=== PATIENT | female | born 1955 | race Caucasian/White ===

== ENCOUNTER → 2016-08-27 | Outpatient (REF) | payer BC ==
[~2016-08-27] MED LIST: ATOR1TAB21 PO; CALCIUM/VITAMIN D; CEPA0.05 MT; COUM2.5T11 PO; IRON CR; LIPI10TA; PERC10TA17 PO; SIMV40TA2 PO; SYNT75TA PO; THERGRAN; TYLE167L PO; VIAC8.5C PO
[2016-08-27 12:32] LABS: ALBUMIN 3.9 GM/DL (3.2-5.2); ALBUMIN/GLOBULIN RATIO 1.05 (1.00-1.93); ALKALINE PHOSPHATASE 92 U/L (45-117); ALT/SGPT 33 U/L (12-78); ANION GAP 7 MEQ/L (8-16); AST/SGOT 38 U/L (15-37); BILIRUBIN,TOTAL 0.9 MG/DL (0.2-1.0); BLOOD UREA NITROGEN 20 MG/DL (7-18); CARBON DIOXIDE LEVEL 29 MEQ/L (21-32); CHLORIDE LEVEL 107 MEQ/L (98-107); CHOLESTEROL LEVEL 205 MG/DL (<200); CREATININE FOR GFR 0.81 MG/DL (0.55-1.02); GLOMERULAR FILTRATION RATE > 60.0 (>51); GLUCOSE, FASTING 91 MG/DL (70-105); POTASSIUM SERUM 4.1 MEQ/L (3.5-5.1); SODIUM LEVEL 143 MEQ/L (136-145); TOTAL PROTEIN 7.6 GM/DL (6.4-8.2); TRIGLYCERIDES LEVEL 68 MG/DL (<150)
== END ==
LOC: M LABDRAW1 11:25
PROVIDERS: ATTEND Family Medicine
DX: E78.00 Pure hypercholesterolemia, unspecified (principal); E03.9 Hypothyroidism, unspecified; D64.9 Anemia, unspecified

== ENCOUNTER → 2016-09-13 | Outpatient (REF) | payer BC ==
[2016-09-13 10:24] LABS: FREE T4 0.82 NG/DL (0.76-1.46)
== END ==
LOC: M LABDRAW1 09:26
PROVIDERS: ATTEND Family Medicine
DX: Z00.00 Encounter for general adult medical examination without abnormal findings (principal); E03.9 Hypothyroidism, unspecified

== ENCOUNTER → 2017-01-28 | Outpatient (CLI) | payer BC ==
--- NOTE | 2017-01-28 10:09 | REPMRS ---
Patient History The patient states she had a clinical breast exam in 01/29 Family history of breast cancer in mother at age 50 or over. Digital Woman Screen Mammo: January 28, 2017 - Exam #: [id number] Bilateral CC and MLO view(s) were taken. Technologist: Carmen Bradford, Technologist Prior study comparison: December 25, 2015, digital woman screen mammo performed at [facility]. September 20, 2014, digital woman screen mammo performed at [facility]. FINDINGS: There are scattered fibroglandular densities. There has been no change in the appearance of the mammogram from the prior studies. There is a mild amount of residual fibroglandular tissue which is fairly symmetric. There is no interval development of dominant mass, architectural distortion, or clustered microcalcification suggestive of malignancy. ASSESSMENT: BI-RADS/ACR category 1 mammogram. Negative. Recommendation Routine screening mammogram in 1 year (for women over age 40). This mammogram was interpreted with the aid of an FDA-approved computer-aided dectection system. Electronically Signed By: Nilo Britton MD 01/28/17 [id number]
== END ==
LOC: M WHC 08:19
PROVIDERS: ATTEND Nurse Practitioner Family
DX: Z12.31 Encounter for screening mammogram for malignant neoplasm of breast (principal); Z80.3 Family history of malignant neoplasm of breast

== ENCOUNTER → 2017-01-28 | Outpatient (REF) | payer BC | LOC: M SFHCWAGY 08:27 | PROVIDERS: ATTEND Nurse Practitioner Family | DX: Z12.4 Encounter for screening for malignant neoplasm of cervix (principal) ==

== ENCOUNTER → 2017-02-17 | Outpatient (REF) | payer BC ==
[~2017-02-17] MED LIST changes: -COUM2.5T11 PO; +COUM2.5T17 PO; -PERC10TA17 PO; +PERC10TA26 PO
[2017-02-17 12:16] LABS: ALBUMIN 3.8 GM/DL (3.2-5.2); ALKALINE PHOSPHATASE 97 U/L (45-117); ALT/SGPT 26 U/L (12-78); ANION GAP 7 MEQ/L (8-16); AST/SGOT 27 U/L (15-37); BLOOD UREA NITROGEN 19 MG/DL (7-18); CALCIUM LEVEL 9.2 MG/DL (8.5-10.1); CARBON DIOXIDE LEVEL 31 MEQ/L (21-32); CHLORIDE LEVEL 103 MEQ/L (98-107); CHOLESTEROL LEVEL 235 MG/DL (<200); CREATININE FOR GFR 0.81 MG/DL (0.55-1.02); GLOMERULAR FILTRATION RATE > 60.0 (>51); GLUCOSE, FASTING 82 MG/DL (70-105); POTASSIUM SERUM 4.3 MEQ/L (3.5-5.1); SODIUM LEVEL 141 MEQ/L (136-145); TRIGLYCERIDES LEVEL 121 MG/DL (<150)
== END ==
LOC: M LABDRAW1 08:29
PROVIDERS: ATTEND Family Medicine
DX: D64.9 Anemia, unspecified (principal); E03.9 Hypothyroidism, unspecified

== ENCOUNTER → 2017-08-31 | Outpatient (REF) | payer BC ==
[2017-08-31 12:04] LABS: ALBUMIN 3.7 GM/DL (3.2-5.2); ALBUMIN/GLOBULIN RATIO 0.97 (1.00-1.93); ALKALINE PHOSPHATASE 105 U/L (45-117); ALT/SGPT 24 U/L (12-78); ANION GAP 8 MEQ/L (8-16); AST/SGOT 24 U/L (7-37); BILIRUBIN,TOTAL 0.4 MG/DL (0.2-1.0); BLOOD UREA NITROGEN 16 MG/DL (7-18); CALCIUM LEVEL 8.8 MG/DL (8.8-10.2); CARBON DIOXIDE LEVEL 29 MEQ/L (21-32); CHLORIDE LEVEL 104 MEQ/L (98-107); CHOLESTEROL LEVEL 214 MG/DL (<200); CHOLESTEROL RISK RATIO 3.147 (<5); CREATININE FOR GFR 0.74 MG/DL (0.55-1.02); GLOMERULAR FILTRATION RATE > 60.0 (>45); GLUCOSE, FASTING 105 MG/DL (80-110); HDL CHOLESTEROL 68 MG/DL (>40); LDL CHOLESTEROL 130.4 MG/DL (<100); NON-HDL-C 146 MG/DL; SODIUM LEVEL 141 MEQ/L (136-145); TOTAL PROTEIN 7.5 GM/DL (6.4-8.2); TRIGLYCERIDES LEVEL 78 MG/DL (<150)
== END ==
LOC: M LABDRAW1 10:56
DX: Z00.00 Encounter for general adult medical examination without abnormal findings (principal); E78.00 Pure hypercholesterolemia, unspecified; E03.9 Hypothyroidism, unspecified
CPT/HCPCS: 84443

== ENCOUNTER → 2017-10-19 | Outpatient (REF) | payer BC ==
[2017-10-19 14:34] LABS: FREE T4 1.06 NG/DL (0.76-1.46)
[2017-10-19 14:34] LABS: THYROID STIMULATING HORMONE 0.128 uIU/ML (0.358-3.740)
== END ==
LOC: M LABDRAW1 12:04
DX: E03.9 Hypothyroidism, unspecified (principal)
CPT/HCPCS: 84443

== ENCOUNTER → 2017-11-03 | Outpatient (REF) | payer BC ==
[2017-11-03 15:31] LABS: BASO % 0.4 % (0.0-1.0); EOS # 0.2 10^3/uL (0.0-0.50); EOS % 3.9 % (0.0-3.0); HEMATOCRIT 38.5 % (36.0-47.0); HEMOGLOBIN 12.7 g/dl (12.0-16.0); IMMATURE GRANULOCYTE % 0.4 % (0-3.0); LYMPH # 1.8 10^3/uL (1.5-4.5); LYMPH % 37.7 % (24.0-44.0); MEAN CORPUSCULAR HEMOGLOBIN 29.6 pg (27.0-33.0); MEAN CORPUSCULAR VOLUME 89.7 fl (80.0-96.0); MONO # 0.4 10^3/uL (0.0-0.8); MONO % 8.6 % (0.0-5.0); NEUTROPHILS # 2.4 10^3/uL (1.8-7.7); PLATELET COUNT, AUTOMATED 195 10^3/uL (150-450); RED BLOOD COUNT 4.29 10^6/uL (4.00-5.40); RED CELL DISTRIBUTION WIDTH 12.5 % (11.5-14.5); WHITE BLOOD COUNT 4.9 10^3/uL (4.0-10.0)
[2017-11-03 15:49] LABS: C REACTIVE PROTEIN QUANTITATIV < 0.30 MG/DL (0.00-0.30)
[2017-11-03 15:58] LABS: ERYTHROCYTE SEDIMENTATION RATE 8 mm/hr (0-30)
== END ==
LOC: M LABDRAW1 13:49
DX: M25.561 Pain in right knee (principal)

== ENCOUNTER → 2017-11-04 | Outpatient (CLI) | payer BC | LOC: M RAD 08:31 | DX: M25.561 Pain in right knee (principal) ==

== ENCOUNTER → 2018-02-28 | Outpatient (REF) | payer BC ==
[2018-02-28 13:07] LABS: ALBUMIN 3.7 GM/DL (3.2-5.2); ALBUMIN/GLOBULIN RATIO 0.97 (1.00-1.93); ALKALINE PHOSPHATASE 86 U/L (45-117); ALT/SGPT 28 U/L (12-78); ANION GAP 7 MEQ/L (8-16); AST/SGOT 24 U/L (7-37); BILIRUBIN,TOTAL 0.6 MG/DL (0.2-1.0); BLOOD UREA NITROGEN 20 MG/DL (7-18); CARBON DIOXIDE LEVEL 30 MEQ/L (21-32); CHLORIDE LEVEL 106 MEQ/L (98-107); CHOLESTEROL LEVEL 224 MG/DL (<200); CHOLESTEROL RISK RATIO 3.796 (<5); CREATININE FOR GFR 0.82 MG/DL (0.55-1.30); FREE T4 0.79 NG/DL (0.76-1.46); GLOMERULAR FILTRATION RATE > 60.0 (>45); GLUCOSE, FASTING 102 MG/DL (70-100); HDL CHOLESTEROL 59 MG/DL (>40); LDL CHOLESTEROL 139.2 MG/DL (<100); NON-HDL-C 165 MG/DL; POTASSIUM SERUM 4.3 MEQ/L (3.5-5.1); SODIUM LEVEL 143 MEQ/L (136-145); THYROID STIMULATING HORMONE 0.326 uIU/ML (0.358-3.740); TOTAL PROTEIN 7.5 GM/DL (6.4-8.2); TRIGLYCERIDES LEVEL 129 MG/DL (<150)
== END ==
LOC: M LABDRAW1 12:00
DX: Z00.00 Encounter for general adult medical examination without abnormal findings (principal); E78.00 Pure hypercholesterolemia, unspecified; E03.9 Hypothyroidism, unspecified
CPT/HCPCS: 84443

== ENCOUNTER → 2018-06-14 | Outpatient (REF) | payer BC ==
[2018-06-16 14:27] LABS: HPV HYBRID CAPTURE II Negative (Negative)
== END ==
LOC: M SFHCWAGY 10:27
DX: Z12.4 Encounter for screening for malignant neoplasm of cervix (principal)
CPT/HCPCS: G0123

== ENCOUNTER → 2018-06-14 | Outpatient (CLI) | payer BC | LOC: M WHC 10:02 | DX: Z12.31 Encounter for screening mammogram for malignant neoplasm of breast (principal) | CPT/HCPCS: 77067 ==

== ENCOUNTER → 2018-10-04 | Outpatient (REF) | payer BC ==
[2018-10-04 16:42] LABS: ALT/SGPT 27 U/L (12-78); BILIRUBIN,TOTAL 1.2 MG/DL (0.2-1.0); BLOOD UREA NITROGEN 16 MG/DL (7-18); CALCIUM LEVEL 9.3 MG/DL (8.8-10.2); CARBON DIOXIDE LEVEL 30 MEQ/L (21-32); CHLORIDE LEVEL 105 MEQ/L (98-107); CHOLESTEROL LEVEL 231 MG/DL (<200); CHOLESTEROL RISK RATIO 3.666 (<5); FREE T4 0.88 NG/DL (0.76-1.46); GLOMERULAR FILTRATION RATE > 60.0 (>45); GLUCOSE, FASTING 99 MG/DL (70-100); HDL CHOLESTEROL 63 MG/DL (>40); LDL CHOLESTEROL 145 MG/DL (<100); NON-HDL-C 168 MG/DL; SODIUM LEVEL 140 MEQ/L (136-145); THYROID STIMULATING HORMONE 0.285 uIU/ML (0.358-3.740); TOTAL PROTEIN 7.8 GM/DL (6.4-8.2); TRIGLYCERIDES LEVEL 116 MG/DL (<150)
== END ==
LOC: M LABDRAW1 11:41
PROVIDERS: ATTEND Family Medicine
DX: E03.9 Hypothyroidism, unspecified (principal); E78.00 Pure hypercholesterolemia, unspecified; Z79.01 Long term (current) use of anticoagulants

== ENCOUNTER → 2019-05-07 | Outpatient (CLI) | payer BC ==
[~2019-05-07] MED LIST changes: -VIAC8.5C PO; +VIACTIV 500-5001 CHW PO
[2019-05-07 13:51] LABS: FREE T4 0.83 NG/DL (0.76-1.46); THYROID STIMULATING HORMONE 0.455 uIU/ML (0.358-3.740)
[2019-05-08 14:21] LABS: ALBUMIN 3.9 GM/DL (3.2-5.2); ALT/SGPT 24 U/L (12-78); BILIRUBIN,TOTAL 0.7 MG/DL (0.2-1.0); BLOOD UREA NITROGEN 19 MG/DL (7-18); CALCIUM LEVEL 9.2 MG/DL (8.8-10.2); CARBON DIOXIDE LEVEL 27 MEQ/L (21-32); CHLORIDE LEVEL 108 MEQ/L (98-107); CHOLESTEROL LEVEL 220 MG/DL (<200); CHOLESTEROL RISK RATIO 3.793 (<5); CREATININE FOR GFR 0.83 MG/DL (0.55-1.30); GLOMERULAR FILTRATION RATE > 60.0 (>45); GLUCOSE, FASTING 94 MG/DL (70-100); HDL CHOLESTEROL 58 MG/DL (>40); LDL CHOLESTEROL 141 MG/DL (<100); NON-HDL-C 162 MG/DL; POTASSIUM SERUM 4.5 MEQ/L (3.5-5.1); SODIUM LEVEL 143 MEQ/L (136-145); TOTAL PROTEIN 7.5 GM/DL (6.4-8.2); TRIGLYCERIDES LEVEL 105 MG/DL (<150)
== END ==
LOC: M SMT 09:15
PROVIDERS: ATTEND Family Medicine
DX: E03.9 Hypothyroidism, unspecified (principal)

== ENCOUNTER → 2019-06-15 | Outpatient (CLI) | payer BC ==
--- NOTE | 2019-06-15 10:56 | REPMRS ---
Patient History The patient states she had a clinical breast exam in 06/2019. Family history of breast cancer at age 70 in mother. No Hormone Replacement Therapy 3D TOMOSYNTHESIS WAS PERFORMED. [facility] lifetime [facility] for [facility] cancer is 14.3%. Digital Woman Screen Mammo: June 15, 2019 - Exam #: [id number] Bilateral CC and MLO view(s) were taken. Technologist: Radha Esposito, Technologist Prior study comparison: June 14, 2018, bilateral digital woman screen mammo performed at [facility]. January 28, 2017, digital woman screen mammo performed at [facility]. FINDINGS: The breast tissue is heterogeneously dense. This may lower the sensitivity of mammography. There has been no change in the appearance of the mammogram from the prior studies. There is a moderate amount of residual fibroglandular tissue which is fairly symmetric. There is no interval development of dominant mass, areas of architectural distortion, or clustered microcalcification typical of malignancy. Assessment: BI-RADS/ACR category 1 mammogram. Negative Mammogram. Recommendation Routine screening mammogram in 1 year (for women over age 40). This mammogram was interpreted with the aid of an FDA-approved computer-aided dectection system. Electronically Signed By: Nilo Britton MD 06/15/19 1080
== END ==
LOC: M WHC 09:41
PROVIDERS: ATTEND Nurse Practitioner Family
DX: Z12.31 Encounter for screening mammogram for malignant neoplasm of breast (principal)

== ENCOUNTER → 2019-08-16 | Outpatient (CLI) | payer BC ==
[~2019-08-16] MED LIST changes: -SIMV40TA2 PO; +SIMV40TA20 PO
--- NOTE | 2019-08-16 16:55 | REP ---
Clinical: swelling Technique: AP, lateral, bilateral oblique views right first digit. Findings: Swelling noted. The osseous structures and joint spaces are intact and normal. There is no evidence for acute fracture or dislocation. Surrounding soft tissues are unremarkable. No subcutaneous emphysema or radiodense foreign body. Impression: Swelling. No acute fracture or dislocation. Electronically Signed by Fili Holland MD 08/16/2019 02:31 P
== END ==
LOC: M WUC 14:10
PROVIDERS: ATTEND Registered Nurse
DX: M25.541 Pain in joints of right hand (principal)

== ENCOUNTER → 2019-10-16 | Outpatient (POV) | payer BC ==
[~2019-10-16] VITALS: Ht 160 cm; Wt 65.0 kg
[2019-10-16 13:20] VITALS: BP 168/95
--- NOTE | 2019-10-19 09:10 | IRCOV ---
[facility] IR Consult Office Visit IR Consult Office Visit DATE: Oct 16, 2019 REASON FOR CONSULTATION/CHIEF COMPLAINT: Right leg pain. Varicose veins. HISTORY OF PRESENT ILLNESS: 64-year-old female with several months of right lower extremity pain and aching associated with pressure behind the knee. Patient is on her feet all day. She stopped running due to the pain. She is status post right knee replacement 4 years ago. No infections. No revision surgeries. No knee swelling. No locking or clicking in the knee. No prior deep vein thrombosis. No intermittent claudication, rest pain or prior cold leg. ALLERGIES: Please see below. HOME MEDICATIONS: Please see below. PAST MEDICAL HISTORY: Hypothyroidism Hyperlipidemia Diverticulitis Knee arthritis PAST SURGICAL HISTORY: Right knee surgery Carpal tunnel release FAMILY HISTORY: Noncontributory SOCIAL HISTORY: Nonsmoker, occasional alcohol no drugs REVIEW OF SYSTEMS: Otherwise negative. PHYSICAL EXAMINATION: VITAL SIGNS: Please see below. GENERAL APPEARANCE: Appears well. Comfortable at rest. HEENT: No scleral icterus. RESPIRATORY: Normal breathing at rest. CARDIOVASCULAR: Normal rate. ABDOMEN: Soft nontender. EXTREMITIES: Right lower extremity: Color normal, warm to touch, no edema, no bulging varicosities, no knee effusion, no pinpoint tenderness over the anterior or posterior knee. No mass palpable in the right popliteal fossa. DP/PT + popliteal 2+ motor 5 out of 5. Left lower extremity: Color normal, warm to touch, no edema, no visible varicosities. DP/PT + popliteal 2+ motor 5 out of 5. NEUROLOGICAL: Alert and oriented. PSYCHIATRIC: Appropriate to circumstance. LABORATORY DATA: None. Imaging: No venous reflux studies. ASSESSMENT/PLAN: 64-year-old female with right leg aching associated with prolonged standing. Will obtain a right lower extremity venous reflux study to rc chavira for superficial venous insufficiency. We'll reach out to the patient once the study is done. I spent 30 minutes in consultation with the patient. Thank you for this referral. Cc PCP Allergies Coded Allergies: No Known Allergies (Verified , 06/21/05) Home Medications Scheduled Atorvastatin Calcium (Atorvastatin Calcium), 20 MG PO QHS, (Reported) Calcium Carb/Vitamin D3/Vit K1 (Viactiv Soft Chew), 1 CHW PO DAILY, (Reported) Levothyroxine Sodium (Synthroid), 75 MCG PO DAILY, (Reported) Simvastatin (Simvastatin), 20 MG PO QHS, (Reported) Warfarin Sodium (Coumadin), 2.5 MG PO DAILY, (Reported) Scheduled PRN (Cepacol), 1 WILLIE MT Q2HP PRN for SORE THROAT, (Reported) Acetaminophen (Tylenol), 650 MG PO Q4HP PRN for TEMP, (Reported) Oxycodone HCl/Acetaminophen (Percocet 10-325 mg Tablet), 1 TAB PO Q4HP PRN for PAIN, (Reported) VS, I&O, 24H, Fishbone Vital Signs/I&O Vital Signs Date Time Temp Pulse Resp B/P (MAP) Pulse Ox O2 Delivery O2 Flow Rate FiO2 10/16/19 13:20 97.9 88 18 168/95 (119) 95 Room Air ARIANNA PULIDO MD Oct 19, 2019 09:11
== END ==
LOC: M IRPOV 13:12
PROVIDERS: ATTEND Radiology Diagnostic Radiology
DX: M79.604 Pain in right leg (principal); E03.9 Hypothyroidism, unspecified; E78.5 Hyperlipidemia, unspecified; Z79.01 Long term (current) use of anticoagulants; Z79.899 Other long term (current) drug therapy; Z96.651 Presence of right artificial knee joint

== ENCOUNTER → 2019-10-23 | Outpatient (CLI) | payer BC ==
--- NOTE | 2019-10-24 08:44 | REP ---
Clinical: History of varicose veins. Technique: Real time dietz scale and color Doppler evaluation of the right lower extremity including reflux evaluation. Findings: Ultrasound examination of the right lower extremity deep venous structures including common femoral vein, superficial femoral vein, and popliteal vein demonstrates normal flow characteristics without deep venous thrombosis or reflux. Reflux evaluation of the right lower extremity demonstrates no reflux through the deep or superficial venous systems. Greater saphenous vein measures 6.0 mm diameter proximally and tapers to 2.6 mm diameter at the level of the knee. Impression: 1. Normal right lower extremity venous structures without evidence for deep venous thrombosis or reflux disease. Electronically Signed by Fili Holland MD 10/24/2019 08:36 A
== END ==
LOC: M RAD 09:27
PROVIDERS: ATTEND Radiology Diagnostic Radiology
DX: I83.90 Asymptomatic varicose veins of unspecified lower extremity (principal)

== ENCOUNTER → 2019-12-28 | Outpatient (CLI) | payer BC ==
--- NOTE | 2019-12-28 11:38 | REP ---
MRI LUMBAR SPINE WITHOUT CONTRAST: HISTORY: Lumbar disc degeneration. Back pain. Rule out spondylolisthesis. Comparison is made with images taken as part of a CAT scan of the abdomen from September 22, 2012. TECHNIQUE: Sagittal and axial T1- and T2-weighted scans are acquired in the usual fashion with and without fat saturation. Sequences include spin echo, turbo spin-echo, and STIR imaging sequences. MRI FINDINGS: Lumbar vertebral body heights are preserved. The tip of the conus medullaris is normal in position and appearance at L1. There are small cysts in the left kidney, the largest of which measures 1.1 cm, although it is incompletely seen. No other extra-vertebral abnormality is observed. Axial and sagittal images taken at L5-S1 demonstrate that there is bilateral L5 spondylolysis and a 7.6 mm grade 1 L5-S1 spondylolisthesis is present. There is advanced degenerative disc disease at L5-S1 with disc space narrowing. There are some reactive marrow changes on either side of the L5-S1 disc implying sclerosis. The spondylolisthesis measured 5 mm on the 2012 sagittal reformatted images from the CT study of the abdomen. There is bilateral neural foraminal narrowing, left greater than right due to the spondylolisthesis and disc bulging. No central canal stenosis is seen. There is osteoarthritic facet hypertrophy at L5-S1 and L4-5 associated with this. Axial and sagittal images at L4-5 demonstrate mild to moderate central canal stenosis due to diffuse disc bulging, bilateral ligamentum flavum and bilateral facet hypertrophy. The ligamentum flavum hypertrophy is more prominent on the left. No foraminal narrowing is seen. The midline AP dimension of the thecal sac at L4-5 is 9.7 mm. Thecal sac compression is more prominent from the dorsolateral aspects due to the facet and ligamentum flavum hypertrophy. At L3-4, there is degenerative narrowing and diffuse disc bulging and posterior osteophytic ridging. Canal size is borderline. Minimal facet and ligamentum flavum hypertrophy is present. At the L2-3 and L1-2, there is no significant finding. IMPRESSION: 7 mm grade 1 L5 S1 spondylolisthesis with bilateral L5 spondylolysis and associated degenerative changes. There is significant bilateral neural foraminal narrowing. The spondylolisthesis measured 5 mm in 2013. There is degenerative central canal stenosis at L4-5. Degenerative disc changes are seen at L3-4. Electronically Signed by Valentín Sandoval MD 12/28/2019 01:07 P
== END ==
LOC: M RAD 07:56
PROVIDERS: ATTEND Orthopaedic Surgery
DX: M51.36 Other intervertebral disc degeneration, lumbar region (principal)

== ENCOUNTER 2020-01-10 09:14 | Outpatient (RCR) | payer BC | END 2020-01-13 | LOC: M PT 09:14 | PROVIDERS: ATTEND Orthopaedic Surgery | DX: Z47.89 Encounter for other orthopedic aftercare (principal); M43.16 Spondylolisthesis, lumbar region; M54.16 Radiculopathy, lumbar region ==

== ENCOUNTER → 2020-05-20 | Outpatient (CLI) | payer BC ==
[2020-05-20 13:15] LABS: ALBUMIN 4.1 GM/DL (3.2-5.2); ALT/SGPT 36 U/L (12-78); BILIRUBIN,TOTAL 1.4 MG/DL (0.2-1.0); BLOOD UREA NITROGEN 16 MG/DL (7-18); CALCIUM LEVEL 9.7 MG/DL (8.8-10.2); CARBON DIOXIDE LEVEL 31 MEQ/L (21-32); CHLORIDE LEVEL 105 MEQ/L (98-107); CHOLESTEROL LEVEL 270 MG/DL (<200); CHOLESTEROL RISK RATIO 4.218 (<5); FREE THYROXINE INDEX 2.7 % (1.3-4.8); GLOMERULAR FILTRATION RATE > 60.0 (>45); GLUCOSE, FASTING 97 MG/DL (70-100); HDL CHOLESTEROL 64 MG/DL (>40); LDL CHOLESTEROL 175 MG/DL (<100); NON-HDL-C 206 MG/DL; POTASSIUM SERUM 4.6 MEQ/L (3.5-5.1); SODIUM LEVEL 140 MEQ/L (136-145); T UPTAKE 31 % (30-39); THYROID STIMULATING HORMONE 0.244 uIU/ML (0.358-3.740); THYROXINE (T4) 8.6 UG/DL (4.5-12.0); TRIGLYCERIDES LEVEL 155 MG/DL (<150)
== END ==
LOC: M WUC 08:56
PROVIDERS: ATTEND Family Medicine
DX: Z00.00 Encounter for general adult medical examination without abnormal findings (principal); E78.00 Pure hypercholesterolemia, unspecified; E03.9 Hypothyroidism, unspecified

== ENCOUNTER → 2020-06-13 | Outpatient (CLI) | payer BC ==
--- NOTE | 2020-06-13 13:00 | REPMRS ---
Patient History The patient states she had a clinical breast exam in May 2020.Family history of breast cancer at age 70 in mother. No Hormone Replacement Therapy 3D TOMOSYNTHESIS WAS PERFORMED. The [facility] lifetime risk for breast cancer is 13.8%. Volpara breast density b. Digital Woman Screen Mammo: June 13, 2020 - Exam #: [id number] Bilateral CC and MLO view(s) were taken. Technologist: Rhonda Ravi, Technologist Prior study comparison: June 15, 2019, bilateral digital woman screen mammo performed at [facility]. June 14, 2018, bilateral digital woman screen mammo performed at [facility]. FINDINGS: There are scattered fibroglandular densities. There has been no change in the appearance of the mammogram from the prior studies. There is a mild amount of residual fibroglandular tissue which is fairly symmetric. There is no interval development of dominant mass, architectural distortion, or clustered microcalcification suggestive of malignancy. Assessment: BI-RADS/ACR category 1 mammogram. Negative Mammogram. Recommendation Routine screening mammogram in 1 year (for women over age 40). This mammogram was interpreted with the aid of an FDA-approved computer-aided dectection system. Electronically Signed By: Nilo Britton MD 06/13/20 1300
== END ==
LOC: M WHC 09:40
PROVIDERS: ATTEND Nurse Practitioner Family
DX: Z12.31 Encounter for screening mammogram for malignant neoplasm of breast (principal)

== ENCOUNTER → 2020-07-07 | Outpatient (CLI) | payer BC ==
[2020-07-07 15:52] LABS: ALBUMIN 4.1 GM/DL (3.2-5.2); ALT/SGPT 31 U/L (12-78); BILIRUBIN,TOTAL 1.1 MG/DL (0.2-1.0); BLOOD UREA NITROGEN 22 MG/DL (7-18); CALCIUM LEVEL 10.1 MG/DL (8.8-10.2); CARBON DIOXIDE LEVEL 29 MEQ/L (21-32); CHLORIDE LEVEL 104 MEQ/L (98-107); CREATININE FOR GFR 0.91 MG/DL (0.55-1.30); GLOMERULAR FILTRATION RATE > 60.0 (>45); GLUCOSE, FASTING 109 MG/DL (70-100); POTASSIUM SERUM 4.7 MEQ/L (3.5-5.1); SODIUM LEVEL 138 MEQ/L (136-145); THYROID STIMULATING HORMONE 0.884 uIU/ML (0.358-3.740); TOTAL PROTEIN 7.7 GM/DL (6.4-8.2)
== END ==
LOC: M WUC 09:11
PROVIDERS: ATTEND Family Medicine
DX: Z00.00 Encounter for general adult medical examination without abnormal findings (principal); E03.9 Hypothyroidism, unspecified

== ENCOUNTER → 2020-11-24 | Outpatient (CLI) | payer BC ==
[2020-11-24 10:50] LABS: ALBUMIN 3.6 GM/DL (3.2-5.2); ALT/SGPT 30 U/L (12-78); BILIRUBIN,TOTAL 0.9 MG/DL (0.2-1.0); BLOOD UREA NITROGEN 18 MG/DL (7-18); CALCIUM LEVEL 9.7 MG/DL (8.8-10.2); CARBON DIOXIDE LEVEL 28 MEQ/L (21-32); CHLORIDE LEVEL 108 MEQ/L (98-107); CHOLESTEROL LEVEL 185 MG/DL (<200); CHOLESTEROL RISK RATIO 2.983 (<5); CREATININE FOR GFR 0.66 MG/DL (0.55-1.30); GLOMERULAR FILTRATION RATE > 60.0 (>45); GLUCOSE, FASTING 111 MG/DL (70-100); HDL CHOLESTEROL 62 MG/DL (>40); LDL CHOLESTEROL 89 MG/DL (<100); NON-HDL-C 123 MG/DL; POTASSIUM SERUM 4.2 MEQ/L (3.5-5.1); SODIUM LEVEL 140 MEQ/L (136-145); THYROID STIMULATING HORMONE 0.628 uIU/ML (0.358-3.740); TRIGLYCERIDES LEVEL 169 MG/DL (<150)
== END ==
LOC: M WUC 08:32
PROVIDERS: ATTEND Family Medicine
DX: Z00.00 Encounter for general adult medical examination without abnormal findings (principal); E03.9 Hypothyroidism, unspecified; E78.00 Pure hypercholesterolemia, unspecified

== ENCOUNTER → 2021-05-08 | Outpatient (CLI) | payer BC ==
[~2021-05-08] MED LIST changes: +LEVO75TA4; +SIMV20TA22; +VIAC1CHW PO
== END ==
LOC: M LABSMTC 10:08
PROVIDERS: ATTEND Anesthesiology
DX: Z01.812 Encounter for preprocedural laboratory examination (principal); Z20.822 Contact with and (suspected) exposure to COVID-19

== ENCOUNTER 2021-05-13 08:35 | Day surgery (SDC) | payer BC ==
[~2021-05-13] VITALS: Ht 160 cm; Wt 64.0 kg
[~2021-05-13 08:35] MED LIST changes: +NS 1,000 ML IV ONE
[2021-05-13] MEDS ORDERED: propofoL 200 MG/20 ML VIAL As Ordered ONE (09:39)
[2021-05-13] MEDS ORDERED: LIDOCAINE 2% MDV 20ML VIAL As Ordered ONE (09:39)
[2021-05-13] MEDS ORDERED: LIDOCAINE 2% 100MG/5ML SDV (FOR ANES.) As Ordered ONE ×2 (09:39→09:43)
[2021-05-13] MEDS ORDERED: ePHEDrine SULFATE 25 MG/5 ML(5MG/ML) SYRINGE As Ordered ONE (10:22)
--- NOTE | 2021-05-13 10:25 | ROOR ---
Patient Name: Iraida Mccabe Procedure Date: 05/13/2021 9:55 AM Date of : 1955 Age: 65 Room: [facility] Gender: Female Note Status: Finalized Procedure: Total Colonoscopy to Cecum + Biopsy Polypectomy + ileoscopy Indications: Screening for colorectal malignant neoplasm Providers: Kieran Rebolledo MD Referring MD: Shahab Cardona MD Requesting Provider: Medicines: Monitored Anesthesia Care Complications: No immediate complications. Procedure: Pre-Anesthesia Assessment: - The heart rate, respiratory rate, oxygen saturations, blood pressure, adequacy of pulmonary ventilation, and response to care were monitored throughout the procedure. The Colonoscope was introduced through the anus and advanced to the cecum, identified by appendiceal orifice and ileocecal valve. The colonoscopy was performed without difficulty. The patient tolerated the procedure well. The quality of the bowel preparation was good. Findings: The perianal and digital rectal examinations were normal. Non-bleeding internal hemorrhoids were found during retroflexion. The hemorrhoids were small and Grade I (internal hemorrhoids that do not prolapse). Multiple small and large-mouthed diverticula were found in the recto-sigmoid colon, sigmoid colon and descending colon. A diminutive polyp was found in the mid ascending colon. The polyp was sessile. The polyp was removed with a cold biopsy forceps. Resection and retrieval were complete. The terminal ileum appeared normal. The exam was otherwise without abnormality on direct and retroflexion views. Impression: - Non-bleeding internal hemorrhoids. - Diverticulosis in the recto-sigmoid colon, in the sigmoid colon and in the descending colon. - One diminutive polyp in the mid ascending colon, removed with a cold biopsy forceps. Resected and retrieved. - The examined portion of the ileum was normal. - The examination was otherwise normal on direct and retroflexion views. - The exam was otherwise normal to the cecum. Recommendation: - Patient has a contact number available for emergencies. The signs and symptoms of potential delayed complications were discussed with the patient. Return to normal activities tomorrow. Written discharge instructions were provided to the patient. - High fiber diet. - Discharge patient to home. - Continue present medications. - Await pathology results. - Telephone GI clinic for pathology results in 1 week. - Repeat colonoscopy in 10 years for screening purposes. - Return to referring physician. - The findings and recommendations were discussed with the patient. Procedure Code(s): --- Professional --- 60901, Colonoscopy, flexible; with biopsy, single or multiple Diagnosis Code(s): --- Professional --- Z12.11, Encounter for screening for malignant neoplasm of colon K64.0, First degree hemorrhoids K63.5, Polyp of colon K57.30, Diverticulosis of large intestine without perforation or abscess without bleeding CPT copyright 2019 [employer]. All rights reserved. The codes documented in this report are preliminary and upon information coder review may be revised to meet current compliance requirements. Kieran Rebolledo MD Kieran Rebolledo MD 05/13/2021 10:25:08 AM Electronically signed by Kieran Rebolledo MD Number of Addenda: 0 Note Initiated On: 05/13/2021 9:55 AM Estimated Blood Loss: Estimated blood loss: none.
[2021-05-13 10:45] VITALS: BP 108/76
== END 2021-05-13 10:51 | disposition home or self-care (01) ==
LOC: M OPP 08:35
PROVIDERS: ATTEND Internal Medicine Gastroenterology
DX: Z12.11 Encounter for screening for malignant neoplasm of colon (principal); K63.5 Polyp of colon; K57.30 Diverticulosis of large intestine without perforation or abscess without bleeding; K64.0 First degree hemorrhoids; Z79.899 Other long term (current) drug therapy

== ENCOUNTER → 2021-06-12 | Outpatient (REF) | payer BC ==
[~2021-06-12] MED LIST changes: -NS 1,000 ML IV ONE
== END ==
LOC: M SFHCWAGY 13:39
PROVIDERS: ATTEND Advanced Practice Midwife
DX: Z01.419 Encounter for gynecological examination (general) (routine) without abnormal findings (principal); Z12.4 Encounter for screening for malignant neoplasm of cervix

== ENCOUNTER → 2021-06-12 | Outpatient (CLI) | payer BC ==
--- NOTE | 2021-06-12 11:13 | REPMRS ---
Patient History The patient states she had a clinical breast exam in May 2021. Family history of breast cancer at age 70 in mother. No Hormone Replacement Therapy Patient states no breast complaints today. Patient has signed MRS History Sheet. Digital Woman Screen Mammo: June 12, 2021 - Exam #: [id number] Bilateral CC and MLO view(s) were taken. Technologist: Sangita Schroeder, Technologist Prior study comparison: June 13, 2020, bilateral digital woman screen mammo performed at [facility]. June 15, 2019, bilateral digital woman screen mammo performed at [facility]. FINDINGS: There are scattered fibroglandular densities. Screening. Digital screening (2D) mammography was performed bilaterally in the CC and MLO projections. Additionally, breast tomosynthesis (3D mammography) was performed bilaterally in the CC and MLO projections. Todays exam was compared to the prior exam/exams. By history, the patient has no complaints of a palpable breast abnormality or other significant breast complaints. The Volpara volumetric breast density category is B, there are scattered areas of fibroglandular densities. The breasts are unchanged in size and shape. There are no chantale-soft tissue densities or spiculated masses. There is no internal architectural distortion. There are no suspicious chantale-calcific clusters. Skin thickening or nipple retraction is not present. IMPRESSION: BI-RADS Category 2- Benign Findings. There is no evidence of malignant alteration of the breasts. Followup examination recommended in one year. The lifetime Tyrer-Cuzick score is 13.3% This mammogram was read with the assistance of Lonnie Gazzang,an FDA approved computer aided detection system for mammography. Negative x-ray reports should not delay surgical consultation if a dominant or clinically suspicious mass is present. Not all breast cancers can be identified by mammography. Therefore, we recommend that you continue to perform regular breast self-examination and physical examination and then promptly contact your physician of any concerns or changes. Adenosis and dense breasts may obscure an underlying neoplasm. No significant changes when compared with prior studies. Assessment: BI-RADS/ACR category 2 mammogram. Benign Findings. Recommendation Routine screening mammogram of both breasts in 1 year. Electronically Signed By: Jamie Panda MD 06/12/21 [id number]
== END ==
LOC: M WHC 09:24
PROVIDERS: ATTEND Nurse Practitioner Family
DX: Z12.31 Encounter for screening mammogram for malignant neoplasm of breast (principal)

== ENCOUNTER → 2021-10-15 | Outpatient (CLI) | payer BC ==
[2021-10-15 12:27] LABS: ALT/SGPT 36 U/L (12-78); BLOOD UREA NITROGEN 19 MG/DL (7-18); CALCIUM LEVEL 9.9 MG/DL (8.8-10.2); CARBON DIOXIDE LEVEL 30 MEQ/L (21-32); CHLORIDE LEVEL 109 MEQ/L (98-107); CHOLESTEROL LEVEL 221 MG/DL (<200); CHOLESTEROL RISK RATIO 3.622 (<5); CREATININE FOR GFR 0.74 MG/DL (0.55-1.30); GLOMERULAR FILTRATION RATE > 60.0 (>45); GLUCOSE, FASTING 104 MG/DL (70-100); HDL CHOLESTEROL 61 MG/DL (>40); LDL CHOLESTEROL 136 MG/DL (<100); NON-HDL-C 160 MG/DL; POTASSIUM SERUM 4.4 MEQ/L (3.5-5.1); SODIUM LEVEL 142 MEQ/L (136-145); TOTAL PROTEIN 7.7 GM/DL (6.4-8.2); TRIGLYCERIDES LEVEL 120 MG/DL (<150)
[2021-10-15 12:28] LABS: THYROID STIMULATING HORMONE 0.612 uIU/ML (0.358-3.740)
[2021-10-15 16:27] LABS: FREE T4 0.84 NG/DL (0.76-1.46)
== END ==
LOC: M WUC 08:08
PROVIDERS: ATTEND Family Medicine
DX: E78.00 Pure hypercholesterolemia, unspecified (principal); E03.9 Hypothyroidism, unspecified

== ENCOUNTER → 2022-01-06 | Outpatient (CLI) | payer BC | LOC: M WUC 15:22 | PROVIDERS: ATTEND Family Medicine | DX: M54.17 Radiculopathy, lumbosacral region (principal); M25.551 Pain in right hip ==

== ENCOUNTER → 2022-01-13 | Outpatient (CLI) | payer BC | LOC: M PLAIMG 12:51 | PROVIDERS: ATTEND Family Medicine | DX: M54.59 Other low back pain (principal) ==

== ENCOUNTER → 2022-04-22 | Outpatient (CLI) | payer BC ==
[2022-04-22 10:36] LABS: HEMATOCRIT 36.8 % (36.0-47.0); HEMOGLOBIN 11.2 g/dl (12.0-15.5); MEAN CORPUSCULAR HGB CONC 30.4 g/dl (32.0-36.5); PLATELET COUNT, AUTOMATED 223 10^3/uL (150-450); WHITE BLOOD COUNT 5.3 10^3/uL (4.0-10.0)
[2022-04-22 11:58] LABS: ALT/SGPT 21 U/L (12-78); BILIRUBIN,TOTAL 0.7 MG/DL (0.2-1.0); BLOOD UREA NITROGEN 13 MG/DL (7-18); CALCIUM LEVEL 9.4 MG/DL (8.8-10.2); CARBON DIOXIDE LEVEL 29 MEQ/L (21-32); CHLORIDE LEVEL 106 MEQ/L (98-107); CHOLESTEROL LEVEL 187 MG/DL (<200); CREATININE FOR GFR 0.73 MG/DL (0.55-1.30); FREE THYROXINE INDEX 3.9 % (1.3-4.8); GLOMERULAR FILTRATION RATE > 60.0 (>45); GLUCOSE, FASTING 96 MG/DL (70-100); HDL CHOLESTEROL 55 MG/DL (>40); LDL CHOLESTEROL 101 MG/DL (<100); NON-HDL-C 132 MG/DL; POTASSIUM SERUM 4.6 MEQ/L (3.5-5.1); SODIUM LEVEL 139 MEQ/L (136-145); T UPTAKE 35 % (30-39); THYROID STIMULATING HORMONE 0.372 uIU/ML (0.358-3.740); TOTAL PROTEIN 7.7 GM/DL (6.4-8.2); TRIGLYCERIDES LEVEL 153 MG/DL (<150)
== END ==
LOC: M WUC 08:17
PROVIDERS: ATTEND Family Medicine
DX: Z00.00 Encounter for general adult medical examination without abnormal findings (principal); E78.00 Pure hypercholesterolemia, unspecified; E03.9 Hypothyroidism, unspecified

== ENCOUNTER → 2022-07-29 | Outpatient (CLI) | payer BC | LOC: M WHC 13:40 | PROVIDERS: ATTEND Advanced Practice Midwife | DX: Z12.31 Encounter for screening mammogram for malignant neoplasm of breast (principal) ==

== ENCOUNTER → 2023-11-02 | Outpatient (CLI) | payer BC, MEDICARE | LOC: M WHC 10:18 | PROVIDERS: ATTEND Advanced Practice Midwife | DX: Z12.31 Encounter for screening mammogram for malignant neoplasm of breast (principal); R92.323 Mammographic fibroglandular density, bilateral breasts; Z13.820 Encounter for screening for osteoporosis; Z78.0 Asymptomatic menopausal state ==